=== PATIENT | male | born 1995 | race Caucasian/White ===

== ENCOUNTER → 2020-05-02 | Outpatient (CLI) | payer OTHER ==
--- NOTE | 2020-05-02 14:49 | Diagnostic Imaging Report ---
EXAMINATION: Magnetic resonance imaging of the left knee without intravenous contrast DATE: May 02, 2020. COMPARISON: None. INDICATION: 25-year-old male, left knee pain. History of osteochondral defect. TECHNIQUE: Multiplanar, multisequence non contrast enhanced MR imaging was accomplished. FINDINGS: MENISCI: The medial meniscus is intact. The lateral meniscus is intact. LIGAMENTS AND TENDONS: The anterior and posterior cruciate ligaments are intact. There is prominent soft tissue edema adjacent to the mid and inferior aspect of the superficial component of the medial collateral ligament complex without definite tear of the superficial component of the medial collateral ligament complex. There is a small amount of fluid in the MCL bursa. The meniscal femoral and meniscotibial ligaments appear at least partially intact. The iliotibial band, mid third lateral capsular ligament, fibular collateral ligament, biceps femoris tendon and conjoined tendon are intact. The quadriceps tendon and patella ligament are intact. JOINT: There is increased signal within the cartilage at the level of the median patellar ridge without overlying surface defect which may correlate with chondromalacia. There is an osteochondral lesion of the lateral aspect of the medial femoral condyle in its mid weightbearing portion which measures 1.7 x 1.4 cm in size. There is a cleft at the anterior aspect of the lesion. There is no fluid-filled cleft completely surrounding the osteochondral lesion. There is some mild irregularity of the articulating surface at this location. There are no cystic changes underlying the osteochondral lesion. There is some altered signal of the osteochondral fragment. The lateral compartment cartilage is intact. There is no large knee joint effusion, prominent synovitis, or identified intra-articular body. BONE: There is the osteochondral lesion of the lateral aspect of the medial femoral condyle as described above. There is no identified acute fracture, bone contusion, or evidence of osteonecrosis. BURSAE AND SOFT TISSUES: There is no Bakers cyst. There is edema in the superolateral aspect of Hoffa's fat which can be seen with patellar tendon lateral femoral condyle fat friction syndrome. There is prominent medial soft tissue edema as mentioned above. IMPRESSION: 1. Osteochondral lesion of the lateral aspect of the medial femoral condyle in its mid weightbearing portion which measures 1.7 x 1.4 cm in size. There is no complete healing of the lesion; however, there is no evidence of a loose osteochondral fragment. 2. Very prominent abnormal soft tissue edema at the level of the mid inferior aspect of the superficial component of the medial collateral ligament complex which may relate to a low-grade sprain injury. Recommend correlation for recent injury. There is no visible tear of the superficial component of the medial collateral ligament complex. There is MCL bursitis. 3. Edema in the superolateral aspect of Hoffa's fat which can be seen with patellar tendon lateral femoral condyle fat friction syndrome. 4. Focal area of increased signal in the cartilage of the median patellar ridge most likely reflecting chondromalacia. 5. Intact menisci and cruciate ligaments. Additional ligaments and tendons not already described above are intact. Dictated by: Dictated on workstation # [id number]
== END ==
LOC: RAD 12:53
PROVIDERS: ATTEND Nurse Practitioner
DX: S80.02XA Contusion of left knee, initial encounter (principal); M95.8 Other specified acquired deformities of musculoskeletal system
CPT/HCPCS: 73721